=== PATIENT | female | born 1975 | race American Indian/Alaskan Native ===

== ENCOUNTER 2021-08-16 03:05 | Emergency (ER) | payer OTHER ==
--- NOTE | 2021-08-16 06:36 | XRay Report ---
Left shoulder 3 views INDICATION: Injury FINDINGS: There is a fracture through the greater tuberosity of the left humeral head. AC joint appea rs normal. No dislocation Signer Name: Barney Lockhart MD Signed: 08/16/2021 6:32 AM Workstation Name: [id number]
[2021-08-16] MEDS ORDERED: HYDROcodone/ACETAMINOPHEN 5-325 MG TAB PO ONE (06:55)
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
[2021-08-16 08:08] VITALS: BP 131/77
== END 2021-08-16 08:05 | disposition home or self-care (01) ==
LOC: ED 03:05
DX: S42.252A Displaced fracture of greater tuberosity of left humerus, initial encounter for closed fracture (principal); F17.200 Nicotine dependence, unspecified, uncomplicated; E11.8 Type 2 diabetes mellitus with unspecified complications; Y04.0XXA Assault by unarmed brawl or fight, initial encounter; Y93.89 Activity, other specified; Y92.59 Other trade areas as the place of occurrence of the external cause; Y99.0 Civilian activity done for income or pay
CPT/HCPCS: 99283